=== PATIENT | female | born 1975 | race Caucasian/White ===

== ENCOUNTER 2018-02-03 15:44 | Outpatient (CLI) | payer BC, SELFPAY ==
--- NOTE | 2018-02-03 16:20 | DI.MAMMO_ITS ---
SYMPTOMS/DIAGNOSIS: SCREENING, Z12.31, BASELINE MAMMOGRAM: Mammograms were interpreted according to the usual protocol including computer analysis with CAD system, tomosynthesis and C view imaging. This is a baseline examination. The breasts are composed of scattered fibroglandular densities, breast density Category B. Right breast - There is a partially obscured nodule in the upper outer quadrant measuring 10 mm. Spot compression views and ultrasound are requested for further evaluation. Slightly more inferiorly on the MLO view, there is question of an additional area of increased density vs overlying fibroglandular tissue. A benign appearing nodule is seen in the upper inner quadrant of the right breast. Left breast - no suspicious masses or suspicious microcalcifications are seen. IMPRESSION: Left breast Category I, negative. Right breast Category 0. SA ASSESSMENT OF FINDINGS: Incomplete: Needs additional imaging evaluation. Category 0. Patient will receive a letter notifying them of these results. BI-RADS category B. There are scattered areas of fibroglandular density.
== END 2018-02-03 16:04 ==
PROVIDERS: PCP Family Medicine; Visit Provider Nurse Practitioner Family
DX: Z12.31 Encounter for screening mammogram for malignant neoplasm of breast (principal); R92.8 Other abnormal and inconclusive findings on diagnostic imaging of breast
CPT/HCPCS: 77063; 77067

== ENCOUNTER 2018-02-11 01:38 | Outpatient (CLI) | payer BC, SELFPAY ==
--- NOTE | 2018-02-11 09:35 | DI.COMBO_ITS ---
SYMPTOM/DIAGNOSIS: F/U ABNL MAMMO, ? INCREASED DENSITY RIGHT BREAST COMPRESSION SPOT FILMS AND RIGHT BREAST ULTRASOUND: Additional images are interpreted according to the usual protocol including tomosynthesis and 2D imaging. Craniocaudad and mediolateral compression spot films of the right breast again reveal a small, rounded density in the upper outer quadrant of the right breast. Evaluation of the medial breast tissue reveals no discrete abnormality. At ultrasound, dense breast tissue is demonstrated. No discrete mass or cyst is identified. The ultrasound findings not withstanding, follow up right breast mammograms are suggested in 6 months with an ultrasound to be obtained if appropriate. Category 3. Breast density, category B. MQSA ASSESSMENT OF FINDINGS: Probably benign. Six month follow-up recommended. Category 3. Patient will receive a letter notifying them of these results. BI-RADS category B. There are scattered areas of fibroglandular density.
== END 2018-02-11 01:58 ==
PROVIDERS: PCP Family Medicine; Visit Provider Nurse Practitioner Family
DX: Z12.31 Encounter for screening mammogram for malignant neoplasm of breast (principal); R92.8 Other abnormal and inconclusive findings on diagnostic imaging of breast; N60.81 Other benign mammary dysplasias of right breast
CPT/HCPCS: 76642; 77063; 77067

== ENCOUNTER 2018-08-09 00:55 | Outpatient (CLI) | payer BC, SELFPAY ==
--- NOTE | 2018-08-09 10:10 | DI.COMBO_ITS ---
SYMPTOM/DIAGNOSIS: RIGHT BREAST LUMP RIGHT BREAST MAMMOGRAM, RIGHT BREAST ULTRASOUND: 08/09/18 Mammograms were interpreted according to the usual protocol including computer analysis with CAD system, tomosynthesis and C view imaging. Today's right breast mammogram and right breast ultrasound are interpreted in conjunction. These examinations were obtained to follow an area of nodularity seen in the upper outer quadrant of the right breast on previous mammogram of January 2018. On today's mammographic examination this is unchanged in appearance. No new mass or clumped microcalcification seen. Right breast ultrasound fails to show a mass or cyst. CONCLUSION: No specific evidence of malignancy at this time. I suggest that an additional 6-month follow up mammogram be obtained which should be bilateral mammogram to routine yearly screening. Category 3, breast density category C. MQSA ASSESSMENT OF FINDINGS: Probably benign. Six month follow-up recommended. Category 3. Patient will receive a letter notifying them of these results. Bi-RADS category C. The breasts are heterogeneously dense, which may obscure small masses.
== END 2018-08-09 01:15 ==
PROVIDERS: PCP Family Medicine; Visit Provider Nurse Practitioner Family
DX: N63.10 Unspecified lump in the right breast, unspecified quadrant (principal)
CPT/HCPCS: 76642; 77061; 77065; G0279

== ENCOUNTER 2019-02-08 01:38 | Outpatient (CLI) | payer BC, SELFPAY ==
--- NOTE | 2019-02-08 09:25 | DI.MAMMO_ITS ---
EXAM: MG MAMMO DIAGNOSTIC BI CLINICAL HISTORY: BREAST LUMP IN UPPER OUTER QUAD. N63.0 TECHNIQUE: Mammograms were interpreted according to the usual protocol including computer analysis w [employer] CAD system, tomosynthesis and C-view imaging. FINDINGS: The breasts are of moderate density with fairly symmetrical distribution of fibroglandular tissue. N o dominant mass or clumped microcalcification is identified in either breast. An area of nodularity i s again seen in the upper outer quadrant of the right breast, unchanged in comparison with previous e xaminations including July 2018. IMPRESSION: No specific evidence of malignancy at this time. Routine screening examinations are suggested at year ly intervals in this age group according to the ACS ACR guidelines. Category 1. Breast density, Yamila Rossi. BI-RADS Cat 1 - Negative. Breast Density - Category C - Heterogeneously dense.
== END 2019-02-08 01:58 ==
PROVIDERS: PCP Family Medicine; Visit Provider Nurse Practitioner Family
DX: N63.21 Unspecified lump in the left breast, upper outer quadrant (principal)
CPT/HCPCS: 77062; 77066; G0279

== ENCOUNTER 2020-07-19 03:03 | Outpatient (CLI) | payer BC, SELFPAY ==
[2020-07-19 07:35] LABS: Bilirubin Negative (Negative); Blood Trace-intact (Negative); Clarity Sl Cloudy (Clear); Glucose Negative (Negative); Ketones Negative (Negative); Leukocyte Esterase Negative (Negative); Nitrite Negative (Negative); Specific Gravity 1.025 (1.005-1.025); Urobilinogen 0.2 EU/dL (Up TO 0.2)
[2020-07-19 07:41] LABS: Bacteria Rare HPF (Negative); Casts Negative LPF (Negative); Crystals Moderate Amorphous HPF (Negative); Epithelial Cells Moderate HPF (Negative); Mucus Trace (Negative); WBC 0-2 HPF (0-5)
[2020-07-19 07:42] LABS: C & S Indicated? No
[2020-07-19 08:33] LABS: Anion Gap 6.4 mmol/L (3-11); BUN 19 mg/dL (7-18); CO2 31.6 mmol/L (21.0-32.0); CREATININE 0.7 mg/dL (0.55-1.02); Calcium 8.9 mg/dL (8.5-10.1); Calculated LDL 124 mg/dL (<100); Chloride 104 mmol/L (98-107); Cholesterol 212 mg/dL (<200); Glucose 102 mg/dL (74-106); HDL Cholesterol 51 mg/dL (40-60); Potassium 4.8 mmol/L (3.5-5.1); Sodium 142 mmol/L (136-145); Triglyceride 189 mg/dL (<150)
== END 2020-07-19 03:04 | disposition home or self-care (01) ==
PROVIDERS: PCP Family Medicine; Visit Provider Nurse Practitioner Family
DX: I10 Essential (primary) hypertension (principal)
CPT/HCPCS: 36415; 80048; 80061; 81003; 81015

== ENCOUNTER 2020-07-25 01:27 | Outpatient (CLI) | payer BC, SELFPAY ==
--- NOTE | 2020-07-25 11:20 | DI.MAMMO_ITS ---
EXAM: MG MAMMO SCREENING CLINICAL HISTORY: SCREENING,Z12.31. TECHNIQUE: Bilateral full field digital CC and MLO mammographic images were obtained with 3D tomosyn thesis and utilizing computer aided detection (CAD). COMPARISON: Prior mammograms dating back to 2017, the most recent being January 2019. Right breast ultrasound performed July 2018 was reviewed FINDINGS: Fibroglandular tissue is moderately dense, this decreasing the sensitivity of the mammogram for findi ng hidden underlying lesions. In the upper outer quadrant of the right breast there is again noted and unchanged noncalcified nodul ar density measuring 9 by 7 millimeters, apparently not seen on prior ultrasound examination therefor e most probably benign lymph node. On 3D imaging of the right breast there is also another noncalcified nodule located 8 cm in from the nipple, medial of center above the midline, unchanged from baseline mammogram of January 2018 and hav ing the appearance of a probable benign lymph node. This measures 9 x 4 millimeters. In the opposite-left breast there is a small noncalcified laterally located nodule which is unchanged from the 2018 baseline mammogram, measuring 4 x 3 millimeters, 10 centimetres in from the nipple. T his is most probably also benign lymph node. There are no new focal left breast findings. There are no malignant-appearing microcalcification groups in either breast. No new architectural di stortion or skin thickening-retraction. IMPRESSION: Stable bilateral benign findings. No radiographic evidence of malignancy. BI-RADS Category 2 - Benign Findings Breast Density - Category C - Heterogeneously dense Breast density Category C or D implies that the patient has dense breast tissue. Dense breast tissue can make it harder to find cancer on a mammogram. Dense breast tissue is also associated with an incr eased risk of breast cancer. This information about the result of the mammogram report was provided to the patient to raise their awareness. Use this report when you speak with the patient about their risks for breast cancer, which includes their family history. At that time, you may recommend additional screening tests (Ultrasoun d or MRI) as these tests may add significant information. A negative radiographic report should not delay biopsy if a dominant or clinically suspicious mass is present. Up to ten percent of cancers are not identified on mammography. A negative report may reinforce clinical impression. Adenosis and dense breasts may obscure an underlying neoplasm. False positive reports average 6 to 10%. Patient will receive a letter notifying them of these results.
== END 2020-07-25 01:47 ==
PROVIDERS: PCP Family Medicine
DX: Z12.31 Encounter for screening mammogram for malignant neoplasm of breast (principal); R59.0 Localized enlarged lymph nodes
CPT/HCPCS: 77063; 77067

== ENCOUNTER 2022-03-06 04:55 | Outpatient (CLI) | payer BC, SELFPAY ==
[2022-03-06 13:40] LABS: Anion Gap 6.3 mmol/L (3-11); BUN 16 mg/dL (7-18); CO2 30.7 mmol/L (21.0-32.0); CREATININE 0.8 mg/dL (0.55-1.02); Calcium 9.3 mg/dL (8.5-10.1); Calculated LDL 176 mg/dL (<100); Chloride 102 mmol/L (98-107); Cholesterol 269 mg/dL (<200); Estimated GFR 92.54 (mL/min/1.73m2); Glucose 93 mg/dL (74-106); HDL Cholesterol 58 mg/dL (40-60); Sodium 139 mmol/L (136-145); Triglyceride 176 mg/dL (<150)
[2022-03-06 14:05] LABS: Bilirubin Negative (Negative); Blood Negative (Negative); Clarity Clear (Clear); Glucose Negative (Negative); Ketones Negative (Negative); Leukocyte Esterase Negative (Negative); Nitrite Negative (Negative); Urobilinogen 0.2 EU/dL (Up TO 0.2); pH 7.5 (5-8)
== END 2022-03-06 04:56 | disposition home or self-care (01) ==
LOC: LOS 04:57
PROVIDERS: PCP Family Medicine; Visit Provider Nurse Practitioner Primary Care
DX: I10 Essential (primary) hypertension (principal)
CPT/HCPCS: 36415; 80048; 80061; 81003

== ENCOUNTER → 2022-04-03 00:58 | Outpatient (CLI) | payer BC, SELFPAY ==
--- NOTE | 2022-04-03 15:45 | DI.MAMMO_ITS ---
Exam(s) MAMMO SCREENING EXAM: MAMMO SCREENING CLINICAL HISTORY: SCREENING, Z12.31 TECHNIQUE: Bilateral full field digital CC and MLO mammographic images were obtained with 3D tomosyn thesis and utilizing computer aided detection (CAD). COMPARISON: Available for comparison. FINDINGS: Masses/Architectural Distortion: There are stable bilateral breast nodules. No suspicious masses or areas of architectural distortion are seen. Microcalcifications: No suspicious pleomorphic-type are seen. Skin Thickening/Nipple Retraction: None. IMPRESSION: 1. No significant interval change with no specific features of malignancy noted. 2. Unless there is more urgent need, screening mammography is recommended, as per [place] [employer] guidelines. BI-RADS Category 2 - Benign Findings Breast Density - Category B - Scattered areas of fibroglandular density Breast density category C or D implies that the patient has dense breast tissue. Dense breast tissue is very common and is not abnormal but dense breast tissue can make it harder to find cancer on a ma mmogram. Also, dense breast tissue may increase their breast cancer risk. This information about the result of the mammogram report was provided to the patient to raise their awareness. Use this report when you speak with the patient about their risks for breast cancer, which includes their family hist ory. At that time, you may recommend for more screening tests (Ultrasound or MRI) as they might be us eful based on their risk. A negative radiographic report should not delay biopsy if a dominant or clinically suspicious mass is present. Up to ten percent of cancers are not identified on mammography. A negative report may reinforce clinical impression. Adenosis and dense breasts may obscure an underlying neoplasm. False positive reports average 6 to 10%. Patient will receive a letter notifying them of these results.
== END ==
PROVIDERS: PCP Family Medicine; Visit Provider Nurse Practitioner Primary Care
DX: Z12.31 Encounter for screening mammogram for malignant neoplasm of breast (principal)
CPT/HCPCS: 77063; 77067

== ENCOUNTER 2023-09-01 05:43 | Outpatient (CLI) | payer BC, SELFPAY ==
[2023-09-01 12:39] LABS: Anion Gap 9.3 mmol/L (3-11); BUN 15 mg/dL (7-18); CO2 29.7 mmol/L (21.0-32.0); CREATININE 0.7 mg/dL (0.55-1.02); Calculated LDL 160 mg/dL (<100); Chloride 103 mmol/L (98-107); Cholesterol 256 mg/dL (<200); Estimated GFR 107.95 (mL/min/1.73m2); Glucose 109 mg/dL (74-106); HDL Cholesterol 64 mg/dL (40-60); Potassium 3.9 mmol/L (3.5-5.1); Sodium 142 mmol/L (136-145); Triglyceride 163 mg/dL (<150)
== END 2023-09-01 05:44 | disposition home or self-care (01) ==
PROVIDERS: PCP Family Medicine; Visit Provider Family Medicine
DX: I10 Essential (primary) hypertension (principal)
CPT/HCPCS: 36415; 80048; 80061

== ENCOUNTER → 2023-09-11 01:26 | Outpatient (CLI) | payer BC, SELFPAY ==
--- NOTE | 2023-09-11 | DI.MAMMO_ITS ---
Exam(s) MAMMO SCREENING EXAM: MAMMO SCREENING CLINICAL HISTORY: SCREENING,Z12.31 TECHNIQUE: Bilateral full field digital CC and MLO mammographic images were obtained with 3D tomosyn thesis and utilizing computer aided detection (CAD). COMPARISON: Available for comparison. FINDINGS: Masses/Architectural Distortion: There are stable bilateral breast nodules. No new nodules are seen. No areas of architectural distortion are present. Microcalcifications: No suspicious pleomorphic-type are seen. Skin Thickening/Nipple Retraction: None. IMPRESSION: 1. No significant interval change with no specific features of malignancy noted. 2. Unless there is more urgent need, screening mammography is recommended, as per [place] [employer] guidelines. BI-RADS Category 2 - Benign Findings Breast Density - Category B - Scattered areas of fibroglandular density Breast density category C or D implies that the patient has dense breast tissue. Dense breast tissue is very common and is not abnormal but dense breast tissue can make it harder to find cancer on a ma mmogram. Also, dense breast tissue may increase their breast cancer risk. This information about the result of the mammogram report was provided to the patient to raise their awareness. Use this report when you speak with the patient about their risks for breast cancer, which includes their family hist ory. At that time, you may recommend for more screening tests (Ultrasound or MRI) as they might be us eful based on their risk. A negative radiographic report should not delay biopsy if a dominant or clinically suspicious mass is present. Up to ten percent of cancers are not identified on mammography. A negative report may reinforce clinical impression. Adenosis and dense breasts may obscure an underlying neoplasm. False positive reports average 6 to 10%. Patient will receive a letter notifying them of these results.
== END ==
PROVIDERS: PCP Family Medicine; Visit Provider Family Medicine
DX: Z12.31 Encounter for screening mammogram for malignant neoplasm of breast (principal)
CPT/HCPCS: 77063; 77067

== ENCOUNTER 2024-01-18 16:56 | Outpatient (CLI) | payer BC, SELFPAY ==
--- NOTE | 2024-01-18 17:00 | DI.RAD_ITS ---
Exam(s) XR FINGER LT LITTLE EXAM: XR FINGER LT LITTLE CLINICAL HISTORY: finger injury, DIP joint and distal phalanx. TECHNIQUE: 2D digital imaging was performed. COMPARISON: No exams were available for comparison FINDINGS: There is a subacute appearing fracture of the middle phalanx of the 5th finger with minimal displacem ent. Proximal and distal phalanges of the 5th finger appear intact. However, the fracture line does appear to extend towards the articular surface of the DIP joint. There are no other fractures ident ified. No osseous lesions. No radiopaque foreign bodies. No osseous lesions. IMPRESSION: Minimally displaced subacute appearing fracture of the middle phalanx of the 5th finger. DATA REPOSITORY: RADIATION DOSE DELIVERED:
--- NOTE | 2024-01-18 17:39 | DI.VRAD_ITS ---
PROCEDURE INFORMATION: Exam: XR Left Finger(s) Exam date and time: 01/18/2024 5:20 PM Age: 48 years old Clinical indication: Injury or trauma; Fall; Sprain or strain; Left; Little finger; Injury date: 01/05/2024 TECHNIQUE: Imaging protocol: Radiologic exam of the left fingers. Views: Minimum 2 views. COMPARISON: No relevant prior studies available. FINDINGS: Bones/joints: Comminuted minimally displaced fracture of the middle phalanx of the little finger. This is an intra-articular fracture extending into the D IP joint. Soft tissues: Soft tissue swelling of the little finger IMPRESSION: Comminuted minimally displaced fracture of the middle phalanx of the little finger. This is an intra-articular fracture extending into the D IP joint. Dictated and Authenticated by: Mali Wolfe MD. Ordering:VALDEZ Lynn MD
== END 2024-01-18 17:16 ==
PROVIDERS: PCP Family Medicine; Visit Provider Physician Assistant
DX: S62.623D Displaced fracture of middle phalanx of left middle finger, subsequent encounter for fracture with routine healing (principal); X58.XXXD Exposure to other specified factors, subsequent encounter
CPT/HCPCS: 73140

== ENCOUNTER 2024-02-03 14:30 | Outpatient (CLI) | payer BC, SELFPAY ==
--- NOTE | 2024-02-03 08:58 | DI.RAD_ITS ---
Exam(s) XR FINGER LT LITTLE EXAM: XR FINGER LT LITTLE CLINICAL HISTORY: F/U FRACTURE. TECHNIQUE: 2D digital imaging was performed. COMPARISON: CR,XR XR FINGER LT LITTLE from 01/18/2024 FINDINGS: Two views The previously described fracture site in the middle phalanx the 5th finger appears stable. Fracture lines are still evident but there is no further displacement nor further angulation. No additional fractures evident. IMPRESSION: Stable appearance DATA REPOSITORY: RADIATION DOSE DELIVERED:
== END 2024-02-03 14:31 | disposition home or self-care (01) ==
LOC: DIORS 14:30
PROVIDERS: PCP Family Medicine; Visit Provider Student in an Organized Health Care Education/Training Program
DX: S62.627D Displaced fracture of middle phalanx of left little finger, subsequent encounter for fracture with routine healing (principal); X58.XXXD Exposure to other specified factors, subsequent encounter
CPT/HCPCS: 73140

== ENCOUNTER 2024-02-26 08:31 | Day surgery (SDC) | payer BC, SELFPAY ==
--- NOTE | 2024-02-25 14:08 | W.PM.DSUDISC ---
Date of service: 02/25/24 Time of Service: 10:15 Discharge Plan Disposition Patient Disposition: Home Condition: Good Discharge Details Reason For Visit: screening colonoscopy Attending Provider: Tien Esposito Primary Care Provider: Henry Murillo Home Meds and New Rx's Prescriptions: Continued chlorthalidone 25 mg tablet 25 mg PO DAILY lisinopril 20 mg tablet 20 mg PO DAILY potassium citrate 10 mEq (1,080 mg) tablet extended release 10 meq PO BID Discontinued bisacodyl 5 mg tablet,delayed release (DR/EC) 5 mg PO ONCE Qty: 4 0RF Rx Instructions: Per Colonoscopy bowel prep instructions polyethylene glycol 3350 17 gram/dose powder 238 g PO ONCE Qty: 238 0RF Rx Instructions: For Colonoscopy bowel prep, as directed by office Discharge Instructions Additional Instructions: Allyson, is very nice meeting you today, I hope you are comfortable during the procedure. Your prep was excellent, negative everything just fine. There were no tumors, polyps, or anything else to worry about. Within normal colonoscopy today, you will be good for 10 years. If you have any changes in the interim, I suggest you discuss that with your primary care physician. 1. If tolerated, consume a soft, low fiber diet for 1-2 days. 2[address] Do not drive, drink alcohol, operate machinery, make critical decisions, or do activities that require coordination or balance for 24 hours. 3. Because air was put into your colon during the procedure, expelling air from your rectum (passing gas or farting) is normal. 4. You may not have a bowel movement for 1-3 days because of the colonoscopy prep. This is normal. 5. Go directly to the emergency room if you notice any of the following: Develop chills (warm to touch), or if you have a thermometer and your temperature is above 101 Difficulty breathing or difficultly swallowing Persistent vomiting Severe abdominal pain, other than gas cramps Severe chest pain Black, tarry stools Any bleeding ? exceeding one tablespoon 6. Call your physician if the site where your intravenous was started becomes red, swollen, painful, and warm to touch. 7. Your physician has reviewed your pre-procedure medications. Please continue to take those medications as previously ordered. You will be given specific information/education regarding any changes to your medications before leaving. Activity:: Activity as Tolerated Diet:: As Tolerated Discharge Orders Discharge Orders: Discharge Order (Routine); Ordered 02/25/24 Ordered By: Tien Esposito DS: Diagnosis Discharge Diagnosis (1) Encounter for screening colonoscopy: Status: Acute Asessment and Plan: Negative screening colonoscopy; follow-up in 10 years
--- NOTE | 2024-02-25 14:10 | W.COLOREPORT ---
Date of service: 02/26/24 Time of Service: 10:15 Colonoscopy Report Date of procedure: 02/26/24 Pre-op diagnosis general: screening colonscopy Post-op diagnosis procedure note: other (Negative screening colonoscopy) Procedure: colonoscopy Surgeon: Tien Esposito Anesthesia Type: General:No Airway Estimated blood loss (mL): 0 Pathology: none sent Complications: None Disposition: same day Indications: Allyson is a 49 year old woman who needs her first screening colonoscopy Prep: Miralax/Dulcolax Procedure Start Time: 09:53 Procedure End Time: 10:07 Retraction Time: 5 Findings: Negative screening colonoscopy Procedure Description: After the induction of anesthesia, and with the patient in left lateral decubitus position, I began by performing an external anorectal exam.? Perineum and skin were normal, as was the anal verge.? There was no evidence of external hemorrhoids.? Next, I performed a digital rectal exam.? I did not appreciate any abnormal findings.? Next, I advanced a colonoscope into the rectal vault.? I performed retroflexion.? This appeared normal.? Using insufflation, I then advanced the colonoscope beyond the rectal folds and into the sigmoid colon before advancing towards the cecum.? The quality of the prep was outstanding.? The scope was noted to be in the cecum by identification of the ileocecal valve and appendiceal orifice.? I then began withdrawing the colonoscope using repeated irrigation as necessary for full evaluation of the colonic mucosa. ?Once the scope was withdrawn to the level of the rectum, great care was taken to examine portions of the rectal folds.? I did not see any signs of tumors, polyps, or any other pathology. Finally, the scope was withdrawn and the patient was brought to the same-day surgery recovery unit as the anesthetic wore off. ?The findings and instructions were shared with the patient prior to discharge. [place] Bowel Prep [place] Bowel Prep Right Colon: 3 Left Colon: 3 Transverse Colon: 3 Total Score: 9
[2024-02-26 08:34] VITALS: BP 131/93; PULSE 85; RESP 18; TEMP 36.7; O2SAT 96
--- NOTE | 2024-02-26 09:04 | ANES.PREOP_ITS ---
General Info Date of Service Date Performed: 02/26/24 Height: 5 ft 9 in Weight: 89.2 kg Body Mass Index (BMI): 29.0 Surgical Procedure: Operation Date: 02/26/24 09:50 Proposed Procedure Side Surgeon mynor Esposito MD Meds Allergies and Home Medications Allergies Allergy/AdvReac Type Severity Reaction Status Date / Time No Known Allergies Allergy Verified 02/26/24 08:50 Home Medication ?Medication ?Instructions ?Recorded chlorthalidone 25 mg tablet 25 mg PO DAILY 12/15/23 lisinopril 20 mg tablet 20 mg PO DAILY 12/15/23 potassium citrate 10 mEq (1,080 10 meq PO BID 02/03/24 mg) tablet,extended release Current Visit Medications: Current Medications Generic Name Dose Route Start Last Admin Trade Name Freq PRN Reason Stop Dose Admin Ringer's Solution 500 mls @ 80 mls/hr 02/26/24 06:00 IV 03/26/24 23:59 INFUSION [facility] IV Miscellaneous Supplies 1 each 02/26/24 06:00 Iv Access IV 03/26/24 23:59 DIRECTED DESTINY Ondansetron HCl 4 mg 02/25/24 14:12 Ondansetron 4 Mg/2 Ml Vial IVP 03/26/24 14:11 Q4H PRN PRN Nausea / Vomiting Sodium Chloride 0 ml 02/26/24 06:00 Normal Saline Flush 10 Ml Syr IV 03/26/24 23:59 PRN PRN Sodium Chloride 0 ml 02/26/24 06:00 Normal Saline 10 Ml Vial IJ 03/26/24 23:59 DIRECTED PRN Sterile Water 0 ml 02/26/24 06:00 Water,Injection,Sterile 10 Ml Vial IJ 03/26/24 23:59 DIRECTED PRN PFSH Active Problems Active Problems: Problem Status Onset Code Encounter for screening colonoscopy Acute Z12.11 Injury of digital nerve of left little finger Acute S64.497A Fracture of middle phalanx of left little finger Acute 01/05/24 S62.627A Medical History Medical History Nephrolithiasis HTN (hypertension) Surgical History Surgical History H/O lithotripsy left ureteral stent and lithotripsy x 3. 03/2014 [facility] [place] S/P LEEP History of tubal ligation H/O section x2 Tobacco Smoking/Tobacco Use Status: Former Tobacco Use Alcohol Alcohol Intake: never Substance Use Substance use: Never Substance use type: does not use Vital Signs and Lab Results Vital Signs Most Recent Vital Signs in EMR: Most Recent Vital Signs Temp Pulse Resp BP Pulse Ox 36.7 C 85 18 131/93 H 96 02/26/24 08:34 02/26/24 08:34 02/26/24 08:34 02/26/24 08:34 02/26/24 08:34 Lab Results Blood Type / Crossmatch: No Data to Display Complete Blood Count: No Data to Display Complete Metabolic Panel: No Data to Display Liver Function Panel: No Data to Display Coagulation Panel: No Data to Display Cardiac Panel: No Data to Display Arterial Blood Gas: No Data to Display Venous Blood Gas: No Data to Display Pancreas Panel: No Data to Display Thyroid Panel: No Data to Display Infectious Disease: No Data to Display Blood Cultures: No Data to Display Toxicology Panel: No Data to Display Panel: No Data to Display Anesthesia Assessment and Plan Anesthesia History Personal History: No History of Anesthesia Complications Family History: No Family History of Anesthesia Complications Exercise Tolerance Exercise Tolerance: Metabolic Equivalents>4 Pertinent Negatives Pertinent Negatives: No Symptoms of GERD, No Major Cardiovascular Symptoms or Complaints, No Major Pulmonary Symptoms or Complaints and No History of CVA/TIA Cardiac & Pulmonary Exam Cardiac Exam: Normal S1/S2 Heart Sounds Pulmonary Exam: Clear Bilateral Breath Sounds Implantable Cardiac Device Does patient have a Pacemaker or an ICD?: No Airway Exam Known Difficult Airway: No Mallampati Class: 3 Mouth Opening: Normal (> 3cm) Thyromental Distance: Greater than 3 cm Neck Range of Motion: Full ROM Neck Circumference: Normal Teeth Condition: Normal Dentition ASA Classification ASA Score: ASA 2 Emergency Case?: No NPO Status NPO Status: NPO Clears >2 hours, Solids >8 hours Status Status: Not Per Patient (patient unable to void, tubal ligation 20 yrs ago, patient checked test waiver box on consent) Anesthesia Plan Resuscitation Status: Full Code Anesthesia Technique: General Anesthesia Airway Planned: Natural Airway Monitors Used: Standard Monitors Preoperative Comments:: 49 y/o female with history of HTN presents for colonoscopy screening.
[2024-02-26] MEDS: Normal Saline Flush 10 ML SYR IV (09:07)
[2024-02-26 09:48] VITALS: BMI 29.0
[2024-02-26 10:14] VITALS: BP 132/71; PULSE 80; RESP 18; TEMP 36.8; O2SAT 96
[2024-02-26 10:29] VITALS: BP 130/89; PULSE 75; RESP 16; TEMP 36.7; O2SAT 96
--- NOTE | 2024-02-26 10:57 | W.ANESPOSTOP ---
Postoperative Evaluation Date, Time and Location Date Performed: 02/26/24 Time Performed: 10:22 Patient Location: Day Surgery Unit Vital Signs Most Recent Imported Vital Signs: Most Recent Vital Signs Temp Pulse Resp BP Pulse Ox 36.7 C 75 16 130/89 96 02/26/24 10:29 02/26/24 10:29 02/26/24 10:29 02/26/24 10:29 02/26/24 10:29 Pain Score Most Recent Pain Score: Most Recent Pain Score Pain Level 0 02/26/24 10:29 Assessment Mental Status: Awake (Alert & Oriented to Patient Baseline) Airway and Respiratory Function: Patent airway with normal (patient baseline) respiratory exam Cardiovascular Function: Hemodynamically Stable Hydration Status: Adequately Hydrated Nausea & Vomiting: No Nausea or Vomiting Pain: Pt. Denies Any Pain Peripheral Nerve Block: Patient did not receive a nerve block
== END 2024-02-26 10:40 | disposition home or self-care (01) ==
LOC: SUR 08:32
PROVIDERS: PCP Family Medicine; Visit Provider Surgery
PROC: 0DJD8ZZ Inspection of Lower Intestinal Tract, Via Natural or Artificial Opening Endoscopic (ICD-10-PCS; CPT 45378; principal; 2024-02-26 09:45)
DX: Z12.11 Encounter for screening for malignant neoplasm of colon (principal); I10 Essential (primary) hypertension
CPT/HCPCS: 45378; J2405; J2704

== ENCOUNTER 2024-12-24 11:26 | Outpatient (REF) | payer BC, SELFPAY | END 2024-12-24 11:27 | disposition home or self-care (01) | LOC: LBN 11:26 | PROVIDERS: PCP Family Medicine; Visit Provider Nurse Practitioner Family | DX: H02.9 Unspecified disorder of eyelid (principal) | CPT/HCPCS: 87070; 87205 ==